=== PATIENT | female | born 1950 | race African-American/Black ===

== ENCOUNTER 2022-03-25 14:56 | Emergency (ER) | payer OTHER ==
[~2022-03-25] VITALS: Ht 172.7 cm; Wt 109.0 kg
[2022-03-25] MEDS ORDERED: TRAMADOL 50MG TABLET PO ONE (18:15)
[2022-03-25] MEDS ORDERED: KETOROLAC 60MG/2ML VIAL IM ONE (18:15)
[2022-03-25] MEDS ORDERED: TETANUS, DIPHTHERIA, PERTUSSIS VAC/PF 0.5ML (>10YR OLD) IM ONE (18:30)
[2022-03-25] MEDS ORDERED: ACETAMINOPHEN 325MG TABLET PO ONE (18:45)
[2022-03-25] MEDS ORDERED: LIDOCAINE HCL 1% 20ML VIAL (Pyxis) INJ INFIL NR (20:00)
[2022-03-25] MEDS ORDERED: ACET-2708 MT (21:58)
[2022-03-25 22:30] VITALS: BP 144/76
== END 2022-03-25 22:30 | disposition home or self-care (01) ==
LOC: ER 14:56
DX: S61.213A Laceration without foreign body of left middle finger without damage to nail, initial encounter (principal); S61.211A Laceration without foreign body of left index finger without damage to nail, initial encounter; W18.39XA Other fall on same level, initial encounter; Y93.89 Activity, other specified; Y92.89 Other specified places as the place of occurrence of the external cause; Y99.8 Other external cause status; Z88.2 Allergy status to sulfonamides; I10 Essential (primary) hypertension
CPT/HCPCS: 12002; 70450; 72125; 73130; 90471; 90715; 99284; J3490; J1885